=== PATIENT | male | born 1990 | race Two or more races ===

== ENCOUNTER 2018-02-03 18:36 | Emergency (ER) | payer MEDICAID ==
[~2018-02-03] VITALS: Ht 190.5 cm; Wt 120.2 kg
--- NOTE | 2018-02-03 19:55 | NUR ---
PT PRESENTS TO ER C/O SI WITHOUT PLAN. DENIES HI. SEEKING ADMISSION AT [facility]. RESP EVEN UNLABORED. CALM, COOPERATIVE, A/OX4 BUT SOMEWHAT DROWSY. PT REPORTS R CALF PAIN TODAY WITHOUT REPORTS OF TRAUMA. IN ER BED 15 AWAITING .
--- NOTE | 2018-02-03 20:22 | NUR ---
PT NOW REPORTS TAKING 1 PARTIAL BOTTLE TRAZODONE, 1 PARTIAL BOTTLE SEROQUEL, AND 3 BOTTLES ROBITUSSIN. PT IS ALERT AND ORIENTED BUT DROWSY, FOLLOWING COMMANDS. PLACED ON MONITOR. IV ACCESS ESTABLISHED.
--- NOTE | 2018-02-03 20:26 | NUR ---
POISON CONTROL CALLED AND OVERDOSE REPORTED. SPOKE WITH KEON. RECOMMENDS MONITROING FOR DROWSINESS, HYPOTENSION, TACHYCARDIA. DRAW LABS, CHEMISTRY, ASA,TYLENOL, EKG. RECOMMENDS MONITORING FOR 6 HOURS OR WHEN RETURN TO BASELINE.
[2018-02-03] MEDS ORDERED: IV NS 0.9% 500 ML BAG IV ONE (20:30)
[2018-02-03 20:37] LABS: BASOPHILS # (AUTO) 0.1 /CMM (0.0-0.2); BASOPHILS % (AUTO) 1.2 % (0.0-2.0); EOSINOPHILS % (AUTO) 3.9 % (0.0-6.0); HEMATOCRIT 41 % (39-51); LYMPHOCYTES # (AUTO) 1.6 /CMM (0.8-4.8); LYMPHOCYTES % (AUTO) 22.3 % (20.0-44.0); MEAN CORPUSCULAR HGB CONC 34 g/dl (31.0-36.0); MEAN CORPUSCULAR VOLUME 90 fL (80-96); MONOCYTES # (AUTO) 0.6 /CMM (0.1-1.30); MONOCYTES % (AUTO) 8.2 % (2.0-12.0); NEUTROPHILS # (AUTO) 4.5 /CMM (1.8-8.9); NEUTROPHILS % (AUTO) 64.4 % (43.0-81.0); PLATELET COUNT (AUTO) 228 /CMM (150-450); RED BLOOD CELL COUNT(AUTO) 4.57 MIL/uL (4.5-6.0); WHITE BLOOD COUNT (AUTO) 6.9 K/uL (4.3-11.0)
[2018-02-03 21:03] LABS: CREATINE KINASE, TOTAL 233 U/L (39-308)
[2018-02-03 21:11] LABS: CARBON DIOXIDE 27 mmol/L (21-32); CHLORIDE 102 mmol/L (98-107); CREATININE 0.9 mg/dL (0.6-1.3); GLUCOSE 92 mg/dL (74-106); POTASSIUM 3.7 mmol/L (3.5-5.1); SODIUM SERUM 139 mmol/L (136-145); UREA NITROGEN, BLOOD 13 mg/dL (7-18)
[2018-02-03 21:17] LABS: ALANINE AMINOTRANSFERASE 77 U/L (12-78); ALBUMIN 3.3 g/dL (3.4-5.0); ALCOHOL, BLOOD < 3 mg/dL (0-0); ALKALINE PHOSPHATASE 87 U/L (46-116); ASPARTATE AMINOTRANSFERASE 54 U/L (15-37); BILIRUBIN,DIRECT 0.1 mg/dL (0.0-0.2); BILIRUBIN,TOTAL 0.4 mg/dL (0.2-1.0); TOTAL PROTEIN, SERUM 6.7 g/dL (6.4-8.2)
[2018-02-03 21:18] LABS: ACETAMINOPHEN 0 ug/ml (10-30); SALICYLATE 0.4 mg/dL (2.8-20.0)
--- NOTE | 2018-02-03 21:50 | NUR ---
OBIE RN, CRISIS [employer], AT BEDSIDE
--- NOTE | 2018-02-03 21:58 | NUR ---
RESTING QUIETLY, NAD NOTED. PT WAS ABLE TO AMBULATE WITH STEADY GAIT TO RESTROOM TO PROVIDE URINE SAMPLE. ALL NEEDS ATTENDED TO.
--- NOTE | 2018-02-03 22:10 | NUR ---
PER OBIE, PT IS ACCEPTED AT [facility] UNDER DR ALBERTO ONCE MEDICALLY CLEARED
--- NOTE | 2018-02-03 23:41 | NUR ---
RESTING QUIETLY, NAD NOTED. REPORT GIVEN TO TOM VARGAS RN FOR LAURA
--- NOTE | 2018-02-04 00:24 | NUR ---
REPORT GIVEN TO RAKAN TOURE FOR CONTINUATION OF CARE.
--- NOTE | 2018-02-04 00:25 | NUR ---
LYRIC AT BEDSIDE FOR TRANSPORT.
[2018-02-04 01:24] VITALS: BP 122/77
== END 2018-02-04 01:25 | disposition home or self-care (01) ==
LOC: ER 18:44
DX: T43.212A Poisoning by selective serotonin and norepinephrine reuptake inhibitors, intentional self-harm, initial encounter (principal); T43.592A Poisoning by other antipsychotics and neuroleptics, intentional self-harm, initial encounter; R45.851 Suicidal ideations; F32.9 Major depressive disorder, single episode, unspecified; F41.9 Anxiety disorder, unspecified; Z98.84 Bariatric surgery status; Z60.2 Problems related to living alone; Y92.89 Other specified places as the place of occurrence of the external cause
CPT/HCPCS: 36415; 70450-TC; 71045-TC; 80048-TC; 80076-TC; 80305; 82550-TC; 84484-TC; 85025-TC; 85730-TC; 93971-TC; A4606; G0480; J7040; Z7610